=== PATIENT | female | born 1995 | race Caucasian/White ===

== ENCOUNTER 2016-05-14 18:00 | Outpatient (CLI) | payer OTHER ==
[~2016-05-14] VITALS: Ht 170.2 cm; Wt 99.5 kg
[2016-05-14 18:30] VITALS: BP 132/75; PULSE 99; TEMP 98.1
[2016-05-14 18:44] VITALS: BP 124/81; PULSE 95; TEMP 98.1
[2016-05-14 19:00] VITALS: BP 124/81; PULSE 95
[2016-05-14] MEDS ORDERED: TUMS500 MG PO (19:16)
[2016-05-14] MEDS ORDERED: TYLENOL 500MG500 MG PO (19:17)
[2016-05-14] MEDS ORDERED: UNISOM25 MG PO (19:18)
[2016-05-14] MEDS ORDERED: TYLENOL PM EXTR1 TA1 PO (19:18)
[2016-05-14] MEDS ORDERED: OSCAL 500 TAB500 MG PO (19:19)
[2016-05-14] MEDS ORDERED: OMEGA-3 1000 MG1 CAP PO (19:19)
[2016-05-14] MEDS ORDERED: MULTIPLE VITAMI1 CAP PO (19:19)
[2016-05-14] MEDS ORDERED: ZOLOFT 50MG50 MG PO (19:20)
[2016-05-14 19:28] VITALS: BP 128/75; PULSE 78
== END 2016-05-14 19:43 | disposition home or self-care (01) ==
LOC: LDRO 18:00
DX: O36.8120 Decreased fetal movements, second trimester, not applicable or unspecified (principal); Z3A.26 26 weeks gestation of pregnancy

== ENCOUNTER 2016-08-10 08:17 | Inpatient (IN) | payer OTHER ==
[2016-08-10] VITALS (44 sets, daily range): BP systolic 108–147; BP diastolic 46–99; PULSE 70–120; TEMP 97.1–98.5
[~2016-08-10] VITALS: Ht 170.2 cm; Wt 106.4 kg
[~2016-08-10 08:17] MED LIST: MULTIPLE VITAMI1 CAP PO; OMEGA-3 1000 MG1 CAP PO; OSCAL 500 TAB500 MG PO; TUMS500 MG PO; TYLENOL 500MG500 MG PO; TYLENOL PM EXTR1 TA1 PO; UNISOM25 MG PO; ZOLOFT 50MG50 MG PO
[2016-08-10] MEDS ORDERED: FERROUS SULFATE65 MG PO (08:36)
[2016-08-10 09:26] LABS: BASO % 0.1 % (0.0-2.0); EOS # 0.2 (0.0-0.7); EOS % 1.9 % (0-4.0); GRAN # 7.2 (1.4-6.5); GRAN % 71.1 % (42.2-75.2); LYMPH # 1.9 (1.2-3.4); LYMPH % 19.2 % (20.0-51.0); MEAN CELL VOLUME 84 fl (80.0-100.0); MEAN CORPUSCULAR HGB CONC 33 g/dl (33.0-37.0); MONO # 0.7 (0.1-0.6); MONO % 7.1 % (1.7-9.3); PLATELET COUNT 213 K/mm3 (130-400); RED BLOOD COUNT 4.16 M/mm3 (4.10-5.30); REDCELL DISTRIBUTION WIDTH-CV 15.1 % (11.5-14.5); WHITE BLOOD COUNT 10.1 K/mm3 (4.8-10.8)
[2016-08-10 09:27] LABS: HEMATOCRIT 34.9 % (37.0-47.0); HEMOGLOBIN 11.6 g/dl (12.5-16.0); MEAN CORPUSCULAR HEMOGLOBIN 28 pg (27.0-31.0)
[2016-08-10] MEDS ORDERED: PERCOCET 325 MG1 TA2 PO (17:47)
[2016-08-10] MEDS ORDERED: IBU600 MG PO (17:47)
[2016-08-11 03:15] VITALS: BP 99/65; PULSE 76; TEMP 97.9
[2016-08-11 08:06] LABS: BASO % 0.2 % (0.0-2.0); EOS # 0.1 (0.0-0.7); GRAN # 8.3 (1.4-6.5); GRAN % 77.4 % (42.2-75.2); LYMPH # 1.5 (1.2-3.4); LYMPH % 14.3 % (20.0-51.0); MEAN CELL VOLUME 87 fl (80.0-100.0); MEAN CORPUSCULAR HGB CONC 32 g/dl (33.0-37.0); MEAN PLATELET VOLUME 12.5 fl (7.4-10.4); MONO # 0.7 (0.1-0.6); MONO % 6.5 % (1.7-9.3); PLATELET COUNT 170 K/mm3 (130-400); RED BLOOD COUNT 3.28 M/mm3 (4.10-5.30); REDCELL DISTRIBUTION WIDTH-CV 15.3 % (11.5-14.5); WHITE BLOOD COUNT 10.7 K/mm3 (4.8-10.8)
[2016-08-11 08:13] LABS: HEMATOCRIT 28.5 % (37.0-47.0); HEMOGLOBIN 9.2 g/dl (12.5-16.0); MEAN CORPUSCULAR HEMOGLOBIN 28 pg (27.0-31.0)
[2016-08-11 09:00] VITALS: BP 128/78; PULSE 84; TEMP 97.8
[2016-08-11 15:00] VITALS: BP 112/64; PULSE 82; TEMP 97.8
[2016-08-11 19:00] VITALS: BP 122/66; PULSE 73; TEMP 97.9
== END 2016-08-11 19:46 | disposition home or self-care (01) | DRG 765 ==
LOC: LDRO 08:17 → LDR 08:45 → OB 18:30 → LDRO 08-18 15:09
PROVIDERS: Obstetrics & Gynecology
PROC: 10D00Z1 Extraction of Products of Conception, Low, Open Approach (ICD-10-PCS; principal; 2016-08-10)
DX: O45.93 Premature separation of placenta, unspecified, third trimester (principal); O99.02 Anemia complicating childbirth; D62 Acute posthemorrhagic anemia; O76 Abnormality in fetal heart rate and rhythm complicating labor and delivery; Z3A.38 38 weeks gestation of pregnancy; Z37.0 Single live birth
CPT/HCPCS: J0690; J1885; J2250; J2270; J2370; J2400; J2405; J2590; J7120

== ENCOUNTER → 2016-08-21 | Outpatient (CLI) | payer OTHER ==
[~2016-08-21] MED LIST changes: +FERROUS SULFATE65 MG PO; +IBU600 MG PO; +PERCOCET 325 MG1 TA2 PO
== END ==
LOC: OLC 15:01
DX: Z39.1 Encounter for care and examination of lactating mother (principal); Z71.89 Other specified counseling